=== PATIENT | female | born 1935 | race Caucasian/White ===

== ENCOUNTER 2019-01-05 18:01 | Emergency (ER) | payer MEDICARE ==
[~2019-01-05] VITALS: Ht 170.2 cm; Wt 90.9 kg
[2019-01-05] MEDS ORDERED: PRAV40TA4 PO (18:36)
[2019-01-05] MEDS ORDERED: ASPI81 PO (18:36)
[2019-01-05] MEDS ORDERED: LEVO112T4 PO (18:36)
[2019-01-05] MEDS ORDERED: CLOP75TA3 PO (18:36)
[2019-01-05] MEDS ORDERED: [UNRECOGNIZED DRUG - OTHER] PO (18:37)
[2019-01-05 20:03] VITALS: BP 134/81
== END 2019-01-05 20:15 | disposition home or self-care (01) ==
LOC: EMS 18:03
DX: S01.511A Laceration without foreign body of lip, initial encounter (principal); E03.9 Hypothyroidism, unspecified; I11.9 Hypertensive heart disease without heart failure; Z98.890 Other specified postprocedural states; Z79.899 Other long term (current) drug therapy; W18.09XA Striking against other object with subsequent fall, initial encounter; Y93.89 Activity, other specified; Y92.89 Other specified places as the place of occurrence of the external cause; Y99.8 Other external cause status